=== PATIENT | female | born 1980 | race Caucasian/White ===

== ENCOUNTER 2023-07-26 14:53 | Outpatient (CLI) | payer BC, SELFPAY | END 2023-07-26 14:54 | disposition home or self-care (01) | PROVIDERS: Visit Provider Registered Nurse | DX: Z13.220 Encounter for screening for lipoid disorders (principal); Z13.1 Encounter for screening for diabetes mellitus; L65.9 Nonscarring hair loss, unspecified | CPT/HCPCS: 80061; 82947; 84443 ==

== ENCOUNTER 2023-10-02 14:19 | Outpatient (CLI) | payer BC, SELFPAY ==
--- NOTE | 2023-10-02 14:40 | MM_ITS ---
Patient: TIFFANY FELIPE Facility:?[facility] Patient ID:?[id number] Site Patient ID:?[id number]. Site :?[id number] Study:?XRay-Breast Bilateral 3D screening mammogram w/cad-10/02/2023 2:49:04 PM Ordering Physician:Kelly Final Report: BILATERAL SCREENING MAMMOGRAM WITH COMPUTER-AIDED DETECTION AND TOMOSYNTHESIS TECHNIQUE: CC and MLO views were obtained. These mammographic images have been obtained using full-field digital technique. These mammographic images were interpreted with the benefit of computer-aided detection. Breast Tomosynthesis was used in this interpretation. COMPARISON FILM: Baseline. No priors available. FINDINGS: The breasts are extremely dense, which lowers the sensitivity of mammography IMPRESSION: There is no radiographic evidence for malignancy. ASSESSMENT: BI-RADS Category 1: Negative RECOMMENDATION: Routine screening mammogram in 1 year. A lay language report of this examination will be provided to the patient. Fam Tamayo M.D. Diagnostic Radiologist [email or web address] DANI/rosa R& Transcribed: 8:12 p.m. HANSA/Dictated by: Fam Tamayo MD @ 10/04/2023 12:53:00 PM Signed by:?Fam Tamayo MD @10/04/2023 8:29:54 PM (Electronic Signature)
== END 2023-10-02 14:20 | disposition home or self-care (01) ==
LOC: MAMMO 14:20
PROVIDERS: Visit Provider Registered Nurse
DX: Z12.31 Encounter for screening mammogram for malignant neoplasm of breast (principal)
CPT/HCPCS: 77063; 77067